=== PATIENT | female | born 1955 | race Caucasian/White ===

== ENCOUNTER 2016-10-20 13:06 | Emergency (ER) | payer MEDICARE | END 2016-10-20 17:11 | disposition home or self-care (01) | LOC: ER 13:06 | CPT/HCPCS: 36415; 71020; 71250; 80053; 85025; 85610; 85730 ==

== ENCOUNTER 2016-11-16 18:11 | Inpatient (IN) | payer MEDICARE ==
[~2016-11-16] VITALS: Ht 162.6 cm; Wt 47.1 kg
[2016-11-16] MEDS ORDERED: NEB-ALBUTEROL 2.5 MG/3 ML INH ONE (19:08)
[2016-11-16] MEDS ORDERED: DUONEB INH ONE (19:09)
[2016-11-16] MEDS ORDERED: METHYLPRED SOD SUCC 125 MG/2 ML VIAL ONE (19:11)
[2016-11-16] MEDS ORDERED: PIPERACIL/TAZO 4.5GM/100ML 100 ML IV ONE (22:00)
[2016-11-16] MEDS ORDERED: BISACODYL EC 5 MG TAB PO PRN (23:00)
[2016-11-16] MEDS ORDERED: SALINE FLUSH 10 ML FLUSH PRN (23:00)
[2016-11-16] MEDS ORDERED: ALU/MAG/SIM 30 ML UDC PO PRN (23:00)
[2016-11-16] MEDS ORDERED: MAG HYDROX 30 ML UDC PO PRN (23:00)
[2016-11-16] MEDS ORDERED: BISACODYL 10 MG SUPP RECTAL PRN (23:00)
[2016-11-16] MEDS ORDERED: PHARMACY TO DOSE ZOSYN IV SCH (23:20)
[2016-11-16 23:50] VITALS: BP_SYST 96; RESP 18; TEMP 98.2
[2016-11-16] MEDS ORDERED: SODIUM CHLORIDE 0.9% 1,000 ML IV ONE (23:50)
[2016-11-17] VITALS (14 sets, daily range): BP systolic 89–160; RESP 14–20; TEMP 97.6–98.3; Ht 162.6 cm; Wt 47.1 kg
[2016-11-17] MEDS: SODIUM CHLORIDE 0.9% 1,000 ML IV SCH ×2 (01:39→13:34)
[2016-11-17] MEDS: ENOXAPARIN 40 MG/0.4 ML SYR SUBQ SCH ×3 (01:40→23:59)
[2016-11-17] MEDS: PIPERACIL/TAZO 3.375GM/50ML 50 ML IV SCH ×3 (01:40→13:21)
[2016-11-17] MEDS: SODIUM CHLORIDE 0.9% FLUSH BAG 500 ML IV SCH (05:28)
[2016-11-17] MEDS: SALINE FLUSH 10 ML FLUSH SCH ×2 (08:00→20:16)
[2016-11-17] MEDS ORDERED: ENOXAPARIN 100 MG/ML MDV SUBQ SCH (09:00)
[2016-11-17] MEDS: ALPRAZOLAM 1 MG TAB PO PRN ×2 (10:52→20:17)
[2016-11-17] MEDS: ASPIRIN 81 MG CHEW TAB PO SCH (10:52)
[2016-11-17] MEDS: DILAUDID 2 MG TAB PO PRN (11:03)
[2016-11-17] MEDS ORDERED: MAGNEVIST 10ML IV ONE (15:08)
[2016-11-17] MEDS ORDERED: AZITHROMYCIN 500 MG in SODIUM CHLORIDE 0.9% 250 ML IV SCH (16:00)
[2016-11-17] MEDS ORDERED: PHARMACY TO DOSE CEFEPIME IV SCH (16:20)
[2016-11-17] MEDS ORDERED: NEB-BROVANA 15 MCG/2 ML INH ONE (16:58)
[2016-11-17] MEDS ORDERED: DUONEB INH ONE (16:59)
[2016-11-17] MEDS ORDERED: NEB-NACL 3% 4 ML NEBU INH ONE (16:59)
[2016-11-17] MEDS ORDERED: NEB-BUDESONIDE 0.5 MG INH ONE (16:59)
[2016-11-17] MEDS: DUONEB INH SCH ×2 (17:05→23:07)
[2016-11-17] MEDS: NEB-NACL 3% 4 ML NEBU INH SCH ×2 (17:05→23:07)
[2016-11-17] MEDS: NEB-BROVANA 15 MCG/2 ML INH SCH (17:05)
[2016-11-17] MEDS: NEB-BUDESONIDE 0.5 MG INH SCH (17:06)
[2016-11-17] MEDS: PREDNISONE 20 MG TAB PO SCH (19:17)
[2016-11-17] MEDS: CEFEPIME 2000 MG/100 ML D5W 100 ML IV SCH ×2 (19:21→23:58)
[2016-11-17] MEDS: OXYCODONE 5 MG TAB PO PRN (19:24)
[2016-11-17] MEDS ORDERED: CEFTRIAXONE 1 GM in SODIUM CHLORIDE 0.9% 50 ML IV SCH (20:00)
[2016-11-17] MEDS: DULoxetine 30 MG CAP PO SCH (20:16)
[2016-11-17] MEDS: METOPROLOL TART 100 MG TAB PO SCH (20:17)
[2016-11-17] MEDS: PRIMIDONE 50 MG TAB PO SCH (20:17)
[2016-11-17] MEDS: CARBAMAZEPINE 200 MG TAB PO SCH (20:17)
[2016-11-17] MEDS: TOPIRAMATE 100 MG TAB PO SCH (20:17)
[2016-11-17] MEDS: clonazePAM 0.5 MG TAB PO SCH (20:23)
[2016-11-17] MEDS ORDERED: Atorvastatin 20 MG TAB PO SCH (21:00)
[2016-11-18] VITALS (7 sets, daily range): BP systolic 111–143; RESP 16–20; TEMP 97.8–98.5
[2016-11-18] MEDS: SODIUM CHLORIDE 0.9% FLUSH BAG 500 ML IV SCH (06:06)
[2016-11-18] MEDS: LEVOTHYROXINE 0.15 MG TAB PO SCH (06:06)
[2016-11-18] MEDS: NEB-BROVANA 15 MCG/2 ML INH SCH ×2 (06:57→19:27)
[2016-11-18] MEDS: NEB-NACL 3% 4 ML NEBU INH SCH ×4 (06:57→23:01)
[2016-11-18] MEDS: DUONEB INH SCH ×4 (06:57→23:01)
[2016-11-18] MEDS: NEB-BUDESONIDE 0.5 MG INH SCH ×2 (06:57→19:27)
[2016-11-18] MEDS ORDERED: MISSING DOSE XX ONE (08:25)
[2016-11-18] MEDS: SALINE FLUSH 10 ML FLUSH SCH ×2 (08:33→21:21)
[2016-11-18] MEDS: clonazePAM 0.5 MG TAB PO SCH ×2 (08:34→21:22)
[2016-11-18] MEDS: DULoxetine 30 MG CAP PO SCH ×2 (08:34→21:23)
[2016-11-18] MEDS: PRIMIDONE 50 MG TAB PO SCH ×2 (08:34→21:22)
[2016-11-18] MEDS: ESCITALOPRAM 10 MG TAB PO SCH (08:34)
[2016-11-18] MEDS: CARBAMAZEPINE 200 MG TAB PO SCH ×2 (08:34→21:23)
[2016-11-18] MEDS: TOPIRAMATE 100 MG TAB PO SCH ×2 (08:34→21:23)
[2016-11-18] MEDS: METOPROLOL TART 100 MG TAB PO SCH ×2 (08:35→21:21)
[2016-11-18] MEDS: PREDNISONE 20 MG TAB PO SCH (08:35)
[2016-11-18] MEDS: ASPIRIN 81 MG CHEW TAB PO SCH (08:35)
[2016-11-18] MEDS: CEFEPIME 2000 MG/100 ML D5W 100 ML IV SCH ×3 (08:36→23:36)
[2016-11-18] MEDS: DILAUDID 2 MG TAB PO PRN (10:28)
[2016-11-18] MEDS ORDERED: PHARMACY TO DOSE VANCOMYCIN IV SCH (11:00)
[2016-11-18] MEDS ORDERED: VANCOMYCIN 750 MG in SODIUM CHLORIDE 0.9% 250 ML IV ONE (11:25)
[2016-11-18] MEDS: ENOXAPARIN 40 MG/0.4 ML SYR SUBQ SCH (14:55)
[2016-11-18] MEDS: OXYCODONE 5 MG TAB PO PRN (16:09)
[2016-11-18] MEDS: ONDANSETRON 4 MG VIAL IV PRN (16:17)
[2016-11-18] MEDS: ALPRAZOLAM 1 MG TAB PO PRN (21:22)
[2016-11-19] VITALS (12 sets, daily range): BP systolic 104–143; RESP 16–20; TEMP 97.7–98.7
[2016-11-19] MEDS ORDERED: VANCOMYCIN 500 MG in SODIUM CHLORIDE 0.9% 100 ML IV SCH ×2
[2016-11-19] MEDS: LEVOTHYROXINE 0.15 MG TAB PO SCH (06:10)
[2016-11-19] MEDS: SODIUM CHLORIDE 0.9% FLUSH BAG 500 ML IV SCH ×2 (06:10→23:46)
[2016-11-19] MEDS: NEB-BROVANA 15 MCG/2 ML INH SCH ×2 (06:21→20:17)
[2016-11-19] MEDS: DUONEB INH SCH ×5 (06:21→22:47)
[2016-11-19] MEDS: NEB-NACL 3% 4 ML NEBU INH SCH ×4 (06:21→22:47)
[2016-11-19] MEDS: NEB-BUDESONIDE 0.5 MG INH SCH ×2 (06:21→20:17)
[2016-11-19] MEDS: SALINE FLUSH 10 ML FLUSH SCH ×2 (09:04→21:05)
[2016-11-19] MEDS: CEFEPIME 2000 MG/100 ML D5W 100 ML IV SCH ×3 (09:04→23:45)
[2016-11-19] MEDS: METOPROLOL TART 100 MG TAB PO SCH ×2 (09:05→21:05)
[2016-11-19] MEDS: ESCITALOPRAM 10 MG TAB PO SCH (09:05)
[2016-11-19] MEDS: PREDNISONE 20 MG TAB PO SCH (09:05)
[2016-11-19] MEDS: ASPIRIN 81 MG CHEW TAB PO SCH (09:05)
[2016-11-19] MEDS: PRIMIDONE 50 MG TAB PO SCH ×2 (09:05→21:02)
[2016-11-19] MEDS: CARBAMAZEPINE 200 MG TAB PO SCH ×2 (09:05→21:02)
[2016-11-19] MEDS: TOPIRAMATE 100 MG TAB PO SCH ×2 (09:06→21:02)
[2016-11-19] MEDS: clonazePAM 0.5 MG TAB PO SCH ×2 (09:06→21:02)
[2016-11-19] MEDS: DULoxetine 30 MG CAP PO SCH (09:06)
[2016-11-19] MEDS: ENOXAPARIN 40 MG/0.4 ML SYR SUBQ SCH ×3 (12:49→23:46)
[2016-11-19] MEDS: VANCOMYCIN 750 MG in SODIUM CHLORIDE 0.9% 250 ML IV SCH (12:49)
[2016-11-19] MEDS: OXYCODONE 5 MG TAB PO PRN ×2 (12:51→18:11)
[2016-11-19] MEDS: ALPRAZOLAM 1 MG TAB PO PRN (18:10)
[2016-11-20] VITALS (10 sets, daily range): BP systolic 91–140; RESP 18–20; TEMP 97.2–98.4
[2016-11-20] MEDS: VANCOMYCIN 750 MG in SODIUM CHLORIDE 0.9% 250 ML IV SCH ×2 (00:51→11:51)
[2016-11-20] MEDS: OXYCODONE 5 MG TAB PO PRN ×3 (02:51→18:30)
[2016-11-20] MEDS: ONDANSETRON 4 MG VIAL IV PRN ×3 (02:52→18:30)
[2016-11-20] MEDS: LEVOTHYROXINE 0.15 MG TAB PO SCH (05:45)
[2016-11-20] MEDS: NEB-NACL 3% 4 ML NEBU INH SCH ×3 (07:14→18:30)
[2016-11-20] MEDS: NEB-BUDESONIDE 0.5 MG INH SCH ×2 (07:14→18:46)
[2016-11-20] MEDS: DUONEB INH SCH ×3 (07:14→14:21)
[2016-11-20] MEDS: NEB-BROVANA 15 MCG/2 ML INH SCH ×2 (07:14→18:46)
[2016-11-20] MEDS: DILAUDID 2 MG TAB PO PRN (07:25)
[2016-11-20] MEDS: SALINE FLUSH 10 ML FLUSH SCH (08:22)
[2016-11-20] MEDS: CEFEPIME 2000 MG/100 ML D5W 100 ML IV SCH ×2 (08:23→15:23)
[2016-11-20] MEDS: ASPIRIN 81 MG CHEW TAB PO SCH (08:25)
[2016-11-20] MEDS: clonazePAM 0.5 MG TAB PO SCH (08:25)
[2016-11-20] MEDS: TOPIRAMATE 100 MG TAB PO SCH (08:26)
[2016-11-20] MEDS: PREDNISONE 20 MG TAB PO SCH (08:26)
[2016-11-20] MEDS: CARBAMAZEPINE 200 MG TAB PO SCH (08:26)
[2016-11-20] MEDS: PRIMIDONE 50 MG TAB PO SCH (08:26)
[2016-11-20] MEDS: METOPROLOL TART 100 MG TAB PO SCH (08:26)
[2016-11-20] MEDS ORDERED: DULoxetine 30 MG CAP PO SCH (09:00)
[2016-11-20] MEDS: ENOXAPARIN 40 MG/0.4 ML SYR SUBQ SCH (11:59)
[2016-11-20] MEDS: ALPRAZOLAM 1 MG TAB PO PRN (13:55)
[2016-11-21] MEDS ORDERED: VANCOMYCIN 1,000 MG in SODIUM CHLORIDE 0.9% 250 ML IV SCH
== END 2016-11-20 20:42 | disposition home or self-care (01) | DRG 917 ==
LOC: ENRESERV → ENRESERVDT → ENRESERVTM → ER 18:11 → EMR 22:19 → PCU 23:24 → OBSVTOIN 11-17 13:27 → ENPENDDIS 11-17 13:27 → 4NT 11-19 17:55
PROVIDERS: ADMIT Internal Medicine; ATTEND Internal Medicine
DX: T40.601A Poisoning by unspecified narcotics, accidental (unintentional), initial encounter (principal); G92 Toxic encephalopathy; I21.4 Non-ST elevation (NSTEMI) myocardial infarction; J96.01 Acute respiratory failure with hypoxia; J47.0 Bronchiectasis with acute lower respiratory infection; J15.5 Pneumonia due to Escherichia coli; J15.211 Pneumonia due to Methicillin susceptible Staphylococcus aureus; R64 Cachexia; Z68.1 Body mass index [BMI] 19.9 or less, adult; T42.75XA Adverse effect of unspecified antiepileptic and sedative-hypnotic drugs, initial encounter; T45.0X5A Adverse effect of antiallergic and antiemetic drugs, initial encounter; T43.205A Adverse effect of unspecified antidepressants, initial encounter; I25.10 Atherosclerotic heart disease of native coronary artery without angina pectoris; Z95.5 Presence of coronary angioplasty implant and graft; K75.9 Inflammatory liver disease, unspecified; Y92.9 Unspecified place or not applicable; G89.4 Chronic pain syndrome; G40.909 Epilepsy, unspecified, not intractable, without status epilepticus; D64.9 Anemia, unspecified; D32.9 Benign neoplasm of meninges, unspecified; E03.9 Hypothyroidism, unspecified; G43.909 Migraine, unspecified, not intractable, without status migrainosus; Z72.0 Tobacco use; F32.9 Major depressive disorder, single episode, unspecified; G25.81 Restless legs syndrome; Z79.02 Long term (current) use of antithrombotics/antiplatelets; M54.9 Dorsalgia, unspecified; Z79.82 Long term (current) use of aspirin
CPT/HCPCS: 36415; 36600; 70450; 70553; 71010; 71260; 74181; 76705; 80053; 80074; 80202; 80307; 80320; 80329; 81001; 82085; 82103; 82140; 82550; 82553; 82784; 82785; 82803; 82947; 83605; 83615; 83880; 84439; 84443; 84484; 84702; 85007; 85025; 85027; 85610; 85652; 85730; 86003; 86038; 86141; 86200; 86235; 86255; 86256; 86329; 86376; 86431; 86606; 86701; 87040; 87071; 87077; 87116; 87186; 87206; 87278; 87299; 87305; 87804; 89230; 93005; 93306; 94640; 94799; 96365; 96375; 99220; 99232; 99233